=== PATIENT | male | born 2000 | race Caucasian/White ===

== ENCOUNTER 2023-01-09 18:01 | Emergency (ER) | payer BC ==
[~2023-01-09] VITALS: Ht 190.5 cm; Wt 145.1 kg
--- NOTE | 2023-01-09 18:10 | ED General ---
General Chief Complaint: Abdominal/GI Problems Stated Complaint: VOMITING, DIAHHREA, POSS FEVER, ABD SPASMS Source of Information: Patient History of Present Illness Date Seen by Provider: Jan 09, 2023 Time Seen by Provider: 18:10 Initial Comments Patient is a 22-year-old male who presents to the emergency room with a chief complaint of diffuse generalized abdominal pain, nausea, vomiting and diarrhea onset at 6 AM this morning when he woke from sleep. Patient states he has had multiple episodes of vomiting and diarrhea, mom is present and states she has not noticed any blood. She reports a significant amount of the history as the patient is in distress due to abdominal pain and nausea. She states that he has had a couple of prior episodes of hyperemesis due to cannabis use. He does smoke daily. He has also had cholecystectomy about a year ago. She is concerned for hyperemesis as well as either COVID or flu. He denies fevers, chills. He has not had coughing or shortness of breath. He cannot describe his abdominal pain. He states that he is a little lightheaded when he stands. He did take 2 pzgr-rhy-saduhun acetaminophen earlier in the day but no medications for diarrhea or the vomiting itself. Timing/Duration: 12 Hours Severity: Severe Associated Systoms: Malaise, Nausea/Vomiting, Weakness Allergies and Home Medications Allergies Coded Allergies: capsaicin (Verified Allergy, Unknown, 01/09/23) Patient Home Medication List Home Medication List Reviewed: Yes Promethazine HCl (Promethazine Tablet) 25 Mg Tablet, 25 MG PO Q6H PRN for NAUSEA/VOMITING Prescribed by: FLORI MALLOY on 01/09/232014 Review of Systems Review of Systems Constitutional: see HPI, malaise EENTM: no symptoms reported Respiratory: no symptoms reported Cardiovascular: no symptoms reported Gastrointestinal: abdominal pain, diarrhea; No hematemesis, No melena; nausea, vomiting Genitourinary: no symptoms reported Musculoskeletal: no symptoms reported Skin: no symptoms reported Psychiatric/Neurological: No Symptoms Reported All Other Systems Reviewed Negative Unless Noted: Yes Past Nlddmya-Tqzuqu-Dyermy Hx Patient Social History Tobacco Use?: Yes Tobacco type used: Cigarettes Use of E-Cig and/or Vaping dev: Yes E-Cig or Vaping type used: Nicotine, Marijuana Substance use?: Yes Substance type: Marijuana Alcohol Use?: No Past Medical History Surgery/Hospitalization HX: LEFT ARM SURGERY, GALBLADDER REMOVED Physical Exam Vital Signs Vital Signs - First Documented 01/09/23 18:06 Temp 36.3 Pulse 68 B/P (MAP) 170/110 (130) Pulse Ox 97 O2 Delivery Room Air Capillary Refill : Height, Weight, BMI Height: '" Weight: lbs. oz. kg; BMI Method: General Appearance: Moderate Distress, Obese Eyes: Bilateral Eye Normal Inspection, Bilateral Eye PERRL, Bilateral Eye EOMI HEENT: PERRL/EOMI Neck: Normal Inspection Respiratory: Lungs Clear Cardiovascular: Regular Rate, Rhythm, Normal Peripheral Pulses Gastrointestinal: Soft, Abnormal Bowel Sounds (hypoactive), Tenderness (diffuse mild tenderness) Extremity: Normal Inspection, Normal Range of Motion, No Pedal Edema Neurologic/Psychiatric: Alert, Other (speaks with eyes closed, moaning; not very forthcoming with responses (due to nausea)) Skin: Warm/Dry, Pallor Progress/Results/Core Measures Suspected Sepsis SIRS Temperature: Pulse: Respiratory Rate: Laboratory Tests 01/09/23 18:20: White Blood Count 15.3H Blood Pressure / Mean: Laboratory Tests 01/09/23 18:20: Creatinine 1.09, Platelet Count 339, Total Bilirubin 0.9 Results/Orders Lab Results Laboratory Tests Test 01/09/23 18:20 01/09/23 18:39 Range/Units White Blood Count 15.3 H 4.3-11.0 10^3/uL Red Blood Count 5.54 H 4.30-5.52 10^6/uL Hemoglobin 16.6 13.3-17.7 g/dL Hematocrit 48 40-54 % Mean Corpuscular Volume 87 80-99 fL Mean Corpuscular Hemoglobin 30 25-34 pg Mean Corpuscular Hemoglobin Concent 34 32-36 g/dL Red Cell Distribution Width 12.6 10.0-14.5 % Platelet Count 339 130-400 10^3/uL Mean Platelet Volume 10.8 9.0-12.2 fL Immature Granulocyte % (Auto) 0 % Neutrophils (%) (Auto) 92 H 42-75 % Lymphocytes (%) (Auto) 5 L 12-44 % Monocytes (%) (Auto) 3 0-12 % Eosinophils (%) (Auto) 0 0-10 % Basophils (%) (Auto) 0 0-10 % Neutrophils # (Auto) 14.0 H 1.8-7.8 10^3/uL Lymphocytes # (Auto) 0.8 L 1.0-4.0 10^3/uL Monocytes # (Auto) 0.4 0.0-1.0 10^3/uL Eosinophils # (Auto) 0.0 0.0-0.3 10^3/uL Basophils # (Auto) 0.0 0.0-0.1 10^3/uL Immature Granulocyte # (Auto) 0.1 0.0-0.1 10^3/uL Neutrophils % (Manual) 91 % Lymphocytes % (Manual) 7 % Monocytes % (Manual) 2 % Blood Morphology Comment NORMAL Sodium Level 139 135-145 MMOL/L Potassium Level 4.7 3.6-5.0 MMOL/L Chloride Level 107 98-107 MMOL/L Carbon Dioxide Level 17 L 21-32 MMOL/L Anion Gap 15 H 5-14 MMOL/L Blood Urea Nitrogen 17 7-18 MG/DL Creatinine 1.09 0.60-1.30 MG/DL Estimat Glomerular Filtration Rate 99 BUN/Creatinine Ratio 16 Glucose Level 133 H 70-105 MG/DL Calcium Level 9.5 8.5-10.1 MG/DL Corrected Calcium 8.5-10.1 MG/DL Total Bilirubin 0.9 0.1-1.0 MG/DL Aspartate Amino Transf (AST/SGOT) 64 H 5-34 U/L Alanine Aminotransferase (ALT/SGPT) 82 H 0-55 U/L Alkaline Phosphatase 98 40-136 U/L Total Protein 8.3 H 6.4-8.2 GM/DL Albumin 4.6 H 3.2-4.5 GM/DL Lipase 4 L 8-78 U/L Influenza Type A (RT-PCR) Not Detected Not Detecte Influenza Type B (RT-PCR) Not Detected Not Detecte SARS-CoV-2 RNA (RT-PCR) Not Detected Not Detecte My Orders Orders - FLORI MALLOY MD Ed Iv/Invasive Line Start (01/09/23 18:18) Cbc And Automated Diff (01/09/23 18:18) Comprehensive Metabolic Panel (01/09/23 18:18) Lipase (01/09/23 18:18) Covid 19 Inhouse Test (01/09/23 18:18) Influenza A And B By Pcr (01/09/23 18:18) Ns Iv 1000 Ml (Ns Iv 1000 Ml) (01/09/23 18:18) Haloperidol Injection (Haloperidol Injec (01/09/23 18:30) Metoclopramide Injection (Metoclopramide (01/09/23 18:30) Diphenhydramine Injection (Diphenhydram (01/09/23 18:30) Manual Differential (01/09/23 18:20) Diphenhydramine Injection (Diphenhydram (01/09/23 18:45) Medications Given in ED Current Medications Medications Dose Ordered Sig/Grzegorz Route Start Time Stop Time Status Last Admin Dose Admin Diphenhydramine HCl 25 mg ONCE ONCE IVP 01/09/23 18:45 01/09/23 18:46 DC 01/09/23 18:48 25 MG Diphenhydramine HCl 50 mg ONCE ONCE IVP 01/09/23 18:30 01/09/23 18:31 DC 01/09/23 18:32 50 MG Haloperidol Lactate 5 mg ONCE ONCE IM 01/09/23 18:30 01/09/23 18:31 DC 01/09/23 18:33 5 MG Metoclopramide HCl 10 mg ONCE ONCE IVP 01/09/23 18:30 01/09/23 18:31 DC 01/09/23 18:32 10 MG Vital Signs/I&O 01/09/23 18:06 Temp 36.3 Pulse 68 B/P (MAP) 170/110 (130) Pulse Ox 97 O2 Delivery Room Air Capillary Refill : Progress Note #1: Time: 19:43 Progress Note Patient seen and evaluated by me. Evaluation today includes history and physical exam with CBC, Chem-12, lipase, COVID and flu test. Pertinent physical exam findings well-developed well-nourished obese male in moderate distress due to nausea and abdominal cramping. His vital signs are stable. He is afebrile. He speaks with his eyes closed and moans a lot. Heart is regular, not tachycardic. Lungs are clear. Abdomen is diffusely mildly tender with hypoactive bowel sounds. No involuntary guarding or rebound. He is noted to be moving all 4 extremities equally, no gross focal neurologic deficits. Differential diagnosis includes acute gastroenteritis, dehydration, partial small bowel obstruction, pancreatitis, hyperemesis due to marijuana, viral syndrome Patient is treated initially in the emergency department with normal saline 1 L, Haldol 5 mg IM Reglan 10 mg IV and Benadryl 50 mg IV. His labs are independently reviewed and interpreted by me. His CBC shows a leukocytosis of 15.3 with 92% segs. His hemoglobin is 16.6 hematocrit of 48, platelets normal at 339. Comprehensive metabolic panel shows normal electrolytes with a depressed CO2 at 17. His glucose is 133. LFTs mildly elevated AST of 64 ALT of 82, normal bilirubin. His lipase is 4. COVID and flu are negative. After the initial dosing of Reglan and Benadryl the patient became somewhat akathetic. I dosed him with a second 25 mg of Benadryl IV and this improved. Progress Note #2: Time: 20:12 Progress Note Patient reevaluated at this time, second liter of normal saline has been given due to significantly low CO2 level. He is feeling much better his nausea is controlled. Low clinical suspicion for any acute pancreatitis as his lipase is low. He has tolerated some sips of water without vomiting. I do not suspect small bowel obstruction. Likely due to daily marijuana use this is hyperemesis due to THC. His COVID and flu were negative. I strongly encouraged him to consider stopping smoking marijuana. He was given Phenergan for nausea for home. Return precautions provided in both verbal and written format. He verbalized understanding of the plan of care. All questions are sought and answered. Patient is improved at discharge. Departure Impression Primary Impression: Hyperemesis Additional Impression: Dehydration Disposition: 01 HOME, SELF-CARE Condition: Improved Departure-Patient Inst. Decision time for Depature: 20:13 Referrals: [facility] – [place], [place],LOCAL PHYSICIAN (PCP) Primary Care Physician Patient Instructions: Nausea and Vomiting, Adult ED Add. Discharge Instructions: Follow a clear liquid diet over the next 12 to 24 hours. You can slowly advance as tolerated after this. Use the Phenergan tablets 25 mg every 6 hours as needed for mild to moderate nausea. You should decrease, if not stop completely smoking marijuana. Consider starting an yumg-dof-isbqjnu acid emission technician such as generic Prilosec or Pepcid over the next 4 weeks. Take this daily. Return to the emergency department for any new, concerning or emergent complaints. Scripts Promethazine HCl (Promethazine Tablet) 25 Mg Tablet 25 MG PO Q6H PRN for NAUSEA/VOMITING, #12 TAB Prov: FLORI MALLOY MD 01/09/23 FLORI MALLOY MD Jan 09, 2023 18:10
[2023-01-09] MEDS ORDERED: NS IV 1000 ML 1,000 ML IV STA ×2 (18:18→19:10)
[2023-01-09 18:29] LABS: BASOPHILS % (AUTO) 0 % (0-10); EOSINOPHILS % (AUTO) 0 % (0-10); HEMATOCRIT 48 % (40-54); HEMOGLOBIN 16.6 g/dL (13.3-17.7); LYMPHOCYTES # (AUTO) 0.8 10^3/uL (1.0-4.0); LYMPHOCYTES % (AUTO) 5 % (12-44); MEAN CORPUSCULAR HEMOGLOBIN 30 pg (25-34); MEAN CORPUSCULAR HGB CONC 34 g/dL (32-36); MEAN CORPUSCULAR VOLUME 87 fL (80-99); MEAN PLATELET VOLUME 10.8 fL (9.0-12.2); MONOCYTES # (AUTO) 0.4 10^3/uL (0.0-1.0); MONOCYTES % (AUTO) 3 % (0-12); NEUTROPHILS % (AUTO) 92 % (42-75); PLATELET COUNT 339 10^3/uL (130-400); WHITE BLOOD COUNT 15.3 10^3/uL (4.3-11.0)
[2023-01-09] MEDS ORDERED: METOCLOPRAMIDE INJ 10 MG/2 ML IVP ONE (18:30)
[2023-01-09] MEDS ORDERED: HALOPERIDOL INJECTION 5 MG/ML VIAL IM ONE (18:30)
[2023-01-09] MEDS ORDERED: diphenhydrAMINE INJ 50 MG/ML VIAL IVP ONE ×2 (18:30→18:45)
[2023-01-09 18:39] LABS: ALBUMIN 4.6 GM/DL (3.2-4.5); CHLORIDE 107 MMOL/L (98-107); POTASSIUM 4.7 MMOL/L (3.6-5.0); SODIUM 139 MMOL/L (135-145)
[2023-01-09 18:41] LABS: CALCIUM 9.5 MG/DL (8.5-10.1)
[2023-01-09 18:42] LABS: GLUCOSE 133 MG/DL (70-105); TOTAL PROTEIN 8.3 GM/DL (6.4-8.2)
[2023-01-09 18:43] LABS: CARBON DIOXIDE 17 MMOL/L (21-32)
[2023-01-09 18:44] LABS: BILIRUBIN,TOTAL 0.9 MG/DL (0.1-1.0)
[2023-01-09 18:45] LABS: ALKALINE PHOSPHATASE 98 U/L (40-136); CREATININE SERUM 1.09 MG/DL (0.60-1.30); GFR ESTIMATED 99
[2023-01-09 18:47] LABS: BUN/CREATININE RATIO 16
[2023-01-09 18:48] LABS: ALANINE AMINOTRANSFERASE 82 U/L (0-55)
[2023-01-09 18:49] LABS: LIPASE 4 U/L (8-78)
[2023-01-09 18:51] LABS: LYMPHOCYTES % (MANUAL) 7 %; MONOCYTES % (MANUAL) 2 %; NEUTROPHILS % (MANUAL) 91 %; RBC MORPH NORMAL
[2023-01-09] MEDS ORDERED: PROM25TA14 PO (20:15)
[2023-01-09 20:23] VITALS: BP 137/83
== END 2023-01-09 20:31 | disposition home or self-care (01) ==
LOC: CSD 18:02 → ER 18:02 → UNDOADMOB 18:53 → CSD 18:53 → ER 20:31
DX: R11.2 Nausea with vomiting, unspecified (principal); E86.0 Dehydration; E66.9 Obesity, unspecified; R10.84 Generalized abdominal pain; F17.210 Nicotine dependence, cigarettes, uncomplicated; F17.290 Nicotine dependence, other tobacco product, uncomplicated; Z90.49 Acquired absence of other specified parts of digestive tract; Z68.41 Body mass index [BMI] 40.0-44.9, adult
CPT/HCPCS: 36415; 80053; 83690; 85007; 85027; 87636; 96361; 96372; 96374; 96375